=== PATIENT | female | born 2000 | race Caucasian/White ===

== ENCOUNTER 2025-03-21 09:38 | Outpatient (CLI) | payer BC, SELFPAY | END 2025-03-21 09:39 | disposition home or self-care (01) | LOC: NFLDREF 03-22 20:07 | PROVIDERS: PCP Physician Assistant Medical; Referring Provider Physician Assistant Medical; Visit Provider Family Medicine | DX: Z00.00 Encounter for general adult medical examination without abnormal findings (principal) | CPT/HCPCS: 80053 ==

== ENCOUNTER 2025-04-02 07:54 | Outpatient (CLI) | payer BC, SELFPAY ==
--- NOTE | 2025-04-02 08:00 | CRLHL7_ITS ---
For Patients: As a result of the Century Cures Act, medical imaging exams and procedure reports are released immediately into your electronic medical record. You may view this report before your referring provider. If you have questions, please contact your health care provider. Indication: Nausea and vomiting Technique: CT Abdomen/Pelvis 107CC ISOVUE 370 intravenous contrast Please note that all CT scans at this facility use dose modulation, iterative reconstruction, and/or weight-based dosing when appropriate to reduce radiation dose to as low as reasonably achievable. Comparison: None Findings: Mild dependent atelectasis. No pleural effusion. Normal liver. Incidental focal fat deposition adjacent to the falciform ligament. Gallbladder normal. Normal pancreas. Spleen normal. Normal adrenal glands. Kidneys within normal limits. Bladder is within normal limits. Normal uterus. Small collapsing right ovarian cyst incidentally noted. Additional small cyst left ovary. Small left paraovarian cyst also noted. Trace physiologic free fluid. No bowel obstruction or free air. No abscess. No adenopathy. Normal small bowel loops. No inflammatory bowel disease. No fracture. Impression: Unremarkable exam. No acute findings. Please note that all CT scans at this facility use dose modulation, iterative reconstruction, and/or weight-based dosing when appropriate to reduce radiation dose to as low as reasonably achievable. Dictated by Jerry Rao MD @ 04/02/2025 9:23:56 AM (Electronically Signed)
== END 2025-04-02 07:55 | disposition home or self-care (01) ==
LOC: CT 07:57
PROVIDERS: PCP Family Medicine
DX: R11.2 Nausea with vomiting, unspecified (principal)
CPT/HCPCS: 74177; Q9967